=== PATIENT | male | born 2005 | race African-American/Black ===

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

== ENCOUNTER 2024-07-04 18:19 | Emergency (ER) | payer OTHER, SELFPAY ==
[~2024-07-04] VITALS: Ht 180.3 cm; Wt 81.0 kg
[2024-07-04 18:24] VITALS: BP 120/70; TEMP 99.5; O2SAT 100
== END 2024-07-05 01:00 | disposition left against medical advice (07) ==
LOC: M ED 18:19
DX: Z53.21 Procedure and treatment not carried out due to patient leaving prior to being seen by health care provider (principal)